=== PATIENT | female | born 1980 | race Caucasian/White ===

== ENCOUNTER → 2022-05-12 | Outpatient (CLI) | payer OTHER ==
[2022-05-12 14:03] LABS: Basophils # (A) 0.11 X 10*3/uL (0.00-0.10); Basophils % (A) 1.6 %; Eosinophils # (A) 0.16 X 10*3/uL (0.04-0.35); Eosinophils % (A) 2.3 %; HCT 38.3 % (37.2-46.3); Immature Grans, Automated 0.3 %; Lymphocytes # (A) 2.12 X 10*3/uL (0.90-5.00); Lymphocytes % (A) 29.9 %; MCH 32.7 pg (27.0-32.0); MCHC 33.9 g/dL (32.0-37.0); MCV 96.5 fL (80.0-97.0); Mean Platelet Volume 9.7 fL (9.5-12.2); Monocytes # (A) 0.75 X 10*3/uL (0.20-1.00); Monocytes % (A) 10.6 %; NRBC Per 100 WBC 0 /100 WBCS (0.0-0.0); Neutrophils # (A) 3.93 X 10*3/uL (1.80-7.70); Neutrophils % (A) 55.3 %; Platelet Count 294 X 10*3/uL (140-440); RBC 3.97 X 10*6/uL (4.10-5.20); RDW 12.2 % (11.5-14.5); WBC 7.09 X 10*3/uL (4.50-10.00)
[2022-05-12 14:34] LABS: African American GFR (CKD) 104.8 (60.0-200.0); Albumin 4.3 g/dL (3.8-4.9); Albumin/Globulin Ratio 1.54 (1.60-3.17); Anion Gap 7.8 mmol/L (10.00-18.00); BUN/Creat Ratio 16.04 Ratio (12.00-20.00); Blood Urea Nitrogen 12.9 mg/dL (9.0-27.0); Calcium 8.9 mg/dL (8.7-10.3); Carbon Dioxide 25.8 mmol/L (20.0-27.5); Globulin 2.8 g/dL (1.6-3.3); HDL Cholesterol 50.3 mg/dL (40.00-60.00); Non-African American GFR(CKD) 90.4 (60.0-200.0); Potassium 3.8 mmol/L (3.5-5.5); Total Bilirubin 0.6 mg/dL (0.30-1.20); Total Protein 7.1 g/dL (6.2-8.2); Triglycerides 45.6 mg/dL (0.00-149.00)
[2022-05-12 14:48] LABS: Chol/HDL Ratio 3.02 Ratio; LDL Cholesterol,Direct Reflex 85.7 mg/dL (0.00-129.00)
[2022-05-12 19:08] LABS: EBV-EA (IgG) <0.2 AI; EBV-EBNA(IgG) >8.0 AI; EBV-VCA (IgG) >8.0 AI; EBV-VCA (IgM) <0.2 AI
== END | disposition home or self-care (01) ==
LOC: LABWHC1 08:04
PROVIDERS: ATTEND Internal Medicine
DX: Z00.00 Encounter for general adult medical examination without abnormal findings (principal); Z86.16 Personal history of COVID-19; E55.9 Vitamin D deficiency, unspecified
CPT/HCPCS: 36415; 80053; 80061; 82306; 83516; 83721; 84443; 85025; 86663; 86664; 86665; 86769